=== PATIENT | female | born 1990 | race Hispanic/Latino ===

== ENCOUNTER → 2022-11-05 07:29 | Outpatient (CLI) | payer OTHER, SELFPAY ==
--- NOTE | ~2022-11-05 | US_ITS ---
Limited Abdominal Sonogram: Real-time sonographic imaging of the right upper quadrant was performed. Clinical History: Abnormal serum enzyme levels Findings: The liver appears echogenic, with no evidence of mass lesion or bile duct dilatation. Main portal vein demonstrates normal direction of flow. The gallbladder is well distended, and appears no rmal with no evidence of gallstone or wall thickening. The common bile duct measures 5 mm. The visua lized pancreas, aorta, and IVC are unremarkable. Impression: . Diffuse fatty infiltration of the liver. Reviewed, dictated and finalized at location M. Impression: . Diffuse fatty infiltration of the liver.
== END ==
PROVIDERS: PCP Family Medicine; Visit Provider Family Medicine
DX: R74.8 Abnormal levels of other serum enzymes (principal); K76.0 Fatty (change of) liver, not elsewhere classified
CPT/HCPCS: 76705

== ENCOUNTER 2023-05-07 10:41 | Outpatient (CLI) | payer OTHER, SELFPAY ==
--- NOTE | ~2023-05-07 | XR_ITS ---
EXAMINATION: XR hysterosalpingogram DATE: 05/08/2023 06:28 CDT INDICATION: Infertility TECHNIQUE: Fluoroscopy was provided for a hysterosalpingogram performed by Dr. Charles Gómez. FINDINGS: There is normal intraluminal morphology of the uterus. The fallopian tubes are normal in a ppearance and are widely patent, with free spill into the peritoneal cavity from both sides. IMPRESSION: 1. Normal hysterosalpingogram. The uterus demonstrates normal intraluminal morphology and both fall opian tubes are patent. Reviewed, dictated and finalized at location A. IMPRESSION: 1. Normal hysterosalpingogram. The uterus demonstrates normal intraluminal mo rphology and both fallopian tubes are patent.
== END 2023-05-07 10:42 | disposition home or self-care (01) ==
LOC: ANHIMG 10:42
PROVIDERS: PCP Family Medicine; Visit Provider Obstetrics & Gynecology
DX: N97.8 Female infertility of other origin (principal)
CPT/HCPCS: 58340; 74740; Q9966

== ENCOUNTER 2023-05-31 12:59 | Outpatient (CLI) | payer OTHER, SELFPAY ==
[2023-05-31 13:44] LABS: Beta HCG Quantitative 167.13 mIU/ML
== END 2023-05-31 13:00 | disposition home or self-care (01) ==
LOC: ANHLAB 13:01
PROVIDERS: PCP Family Medicine; Visit Provider Family Medicine
DX: Z32.01 Encounter for pregnancy test, result positive (principal)
CPT/HCPCS: 36415; 84702

== ENCOUNTER 2023-06-02 12:09 | Outpatient (CLI) | payer OTHER, SELFPAY ==
[2023-06-02 13:01] LABS: Beta HCG Quantitative 387.72 mIU/ML
== END 2023-06-02 12:10 | disposition home or self-care (01) ==
PROVIDERS: PCP Family Medicine; Visit Provider Family Medicine
DX: Z32.01 Encounter for pregnancy test, result positive (principal)
CPT/HCPCS: 36415; 84702

== ENCOUNTER 2023-06-04 12:55 | Outpatient (CLI) | payer OTHER, SELFPAY | END 2023-06-04 12:56 | disposition home or self-care (01) | LOC: ANHLAB 12:56 | PROVIDERS: PCP Family Medicine; Visit Provider Family Medicine | DX: Z32.01 Encounter for pregnancy test, result positive (principal) | CPT/HCPCS: 36415; 84702 ==

== ENCOUNTER 2023-07-16 01:23 | Day surgery (SDC) | payer OTHER, SELFPAY ==
[2023-07-14 10:39] VITALS: BMI 40.8
--- NOTE | 2023-07-14 10:40 | PC.NURSE ---
Report to the Outpatient Waiting Room, entrance under the green pavilion located off [facility], at time _0915_ on date _[id number]_. Planned Procedure Time: _1115_. Time changes happen often and if your time is changed the preop area will call you the afternoon before. - You and your visitor will be asked to self-screen and do not enter if you have any COVID symptoms. - A mask is optional within the hospital at this time. Patients may have clear liquids (water, carbonated beverages, clear teas, apple juice) until 3 hours prior to surgery with a maximum of 20 ounces. - No food from midnight until time of surgery Take the following medications with a SIP of water the morning of surgery: ___Labetolol DO NOT STOP ANY OF YOUR OTHER PRESCRIPTION MEDICATIONS PRIOR TO SURGERY ?EXCEPT THE FOLLOWING Medications to discontinue per physician None Date to take last dose Please no make-up, nail mohawk, hairspray, perfume, deodorant, or body powder the day of surgery. No jewelry (including any body piercings) or valuables the day of surgery, leave them at home. Please take a shower or bath the night before, or the morning of, surgery with an antibacterial soap. Wear comfortable, loose fitting clothing. - Jewelry must be removed prior to entering the operating room. Rings and piercings that are not removed may be cut off. - The hospital will not accept responsibility for valuables. - Please leave all valuables, including medications, at home the day of surgery. If you are going home after surgery, a licensed truss driver helper must drive you home. - NO public transportation without another adult if you receive anesthesia. - We recommend that an adult stay with you for 24 hours following discharge. - We also recommend that you do not drive, make important decision, drink alcoholic beverages, or take any drugs that were not prescribed by your health care provider for at least 24 hours after your discharge time. Follow any additional instructions given to you from your surgeon. If you or anyone in your household have experienced Covid symptoms in the past week, please notify your surgeon or the nurse liaison at the phone number below for possible testing. Telephone instructions given to _Nani__and asked if any additional questions and then verbalized understanding. Patient advised to call surgeon office or pre surgery nurse liaison [phone] if any additional questions.
--- NOTE | 2023-07-14 12:12 | PM.IMHP ---
H&P: HPI History of Present Illness Date/Time: 07/14/23 12:12 Chief Complaint: 33-year-old 3 para 1 with 1st trimester missed A/B Narrative: 33-year-old female in her 1st trimester with an ultrasound that showed no growth at about 7 weeks gestation with no heart tones. She will undergo suction dilatation curettage. Risks and benefits reviewed in full [facility] Social History Social History Smoking status: Never smoker Lack of Transportation: No Lack of Food: Never True Current Housing: I Have Housing Concerned About Future Housing: No Difficulty Paying Gas/Electric Bills: No Difficulty Paying for Meds: No Currently Unemployed: No Education: Trade/Vocational Certificate Difficulty w/ Childcare or Family Care: No Living arrangements: with family Spiritual care concerns: No Meds Home Medications and Allergies Home Medications Medication Instructions Recorded Confirmed Type labetalol 100 mg tablet See Rx Instructions .Route 05/26/23 07/14/23 Rx .COMPLEX #180 tabs Allergies Allergy/AdvReac Type Severity Reaction Status Date / Time No Known Allergies Allergy Unverified 07/14/23 10:33 Exam Const: General: cooperative, healthy appearing and comfortable Nutritional Appearance: average body habitus Orientation/consciousness: oriented to person, oriented to place and oriented to time Resp: Effort & Inspection: normal respiratory effort Cardio: Rate: regular rate Rhythm: regular rhythm Heart sounds: S1 normal heart sound present and S2 normal heart sound present GI: Inspection: normal to inspection : External Female Exam: normal external appearance Speculum Exam - Vagina: normal appearance of the vagina Speculum Exam - Cervix: normal appearance of the cervix Bimanual exam- vagina & uterus: enlarged Bimanual Exam- Adnexa, other: normal adnexae Assessment and Plan Assessment and plan (1) Missed : Code(s): O02.1 - Missed Status: Acute Plan suction dilatation and curettage
--- NOTE | 2023-07-16 05:40 | WPDHPUPDATE1 ---
History and Physical Update Update Date/Time: 07/16/23 05:40 History and Physical has been reviewed, including an updated exam of the patient. There are NO changes in the patient's condition. Risks, benefits, and alternatives have been discussed and questions answered. Patient agrees to proceed with procedure.
[2023-07-16 10:03] LABS: Hematocrit 40.8 % (37.0-47.0); Hemoglobin 13.5 g/dL (12.0-15.0)
--- NOTE | 2023-07-16 10:05 | WPDANESEPPF ---
Anes - Initial Pre Proc Eval Procedure: Operation Date: 07/16/23 11:15 Proposed Procedures p Suction Dilatation and Curettage - Adarsh Gómez MD Date/Time: 07/16/23 10:05 Surgeon: Adarsh Gómez MD Pre Op Diagnosis: missed AB Patient Data Age: 33 Gender: F Height: 1.6 m Weight: 104.5 kg Allergies Allergy/AdvReac Type Severity Reaction Status Date / Time No Known Allergies Allergy Unverified 07/16/23 10:06 Home Medications Medication Instructions Recorded Confirmed Type labetalol 100 mg tablet See Rx Instructions .Route 05/26/23 07/14/23 Rx .COMPLEX #180 tabs hydrocodone 5 mg-acetaminophen 325 1 tablet PO Q4H PRN pain #20 tabs 07/16/23 Rx mg tablet Laboratory Tests 07/16/23 09:53 Hgb Pending Hct Pending Patient hx anesthesia problems: none Family hx anesthesia problems: none Results Review: All pre-operative results and documents have been reviewed as part of the pre-operative evaluation. [facility] Past Medical History Medical History (Updated 07/16/23 @ 10:06 by Adarsh Parish MD) Obesity Social History Social History Smoking status: Never smoker Lack of Transportation: No Lack of Food: Never True Current Housing: I Have Housing Concerned About Future Housing: No Difficulty Paying Gas/Electric Bills: No Difficulty Paying for Meds: No Currently Unemployed: No Education: Trade/Vocational Certificate Difficulty w/ Childcare or Family Care: No Living arrangements: with family Spiritual care concerns: No Anes - Eval Final PreProcedure Day of Procedure 07/16/23 10:05 Patient weight: obese Heart: regular rate and rhythm Lungs: clear to auscultation Airway: Mallampati scale class II Neurological: alert and oriented Last oral intake: >/= 8 hours ASA classification: II Emergent: no Anesthetic plan: proceed Anesthesia type and monitoring: general GIVS and standard monitoring Results Review: All pre-operative results and documents have been reviewed as part of the pre-operative evaluation. Informed Consent: The patient's anesthetic plan and its attendant risks and benefits were discussed with the patient/family/POA. Questions were solicited and answers provided to the satisfaction of the patient/family/POA.
[2023-07-16] MEDS: ACETAMINOPHEN 500 MG TABLET 1000 MG PO (10:08)
[2023-07-16] MEDS: LACTATED RINGERS 1,000 ML 30 ML IV CONT (10:08)
[2023-07-16 10:09] VITALS: BP 117/79; PULSE 114; RESP 16; TEMP 36.2; O2SAT 98
[2023-07-16] MEDS: LIDOCAINE HCL 1% LOCAL INJ 10 ML VIAL INFILTRATE (11:27)
[2023-07-16 11:45] VITALS: BP 96/47; PULSE 102; RESP 16; O2SAT 96
--- NOTE | 2023-07-16 11:45 | P.OP_ITS ---
Procedure Note - Detailed Date of Procedure 07/16/23 Pre-op Diagnosis missed AB Post-op Diagnosis Same Procedure Performed suction Dilatation curettage Surgeon Adarsh Gómez MD Anesthesia MAC and Local Indications 33 year multiparous female with a 1st trimester missed A/B Findings uterus sounded 10cm. Tissue consistent products of conception Description of Procedure patient was prepped draped sterile placed dorsal lithotomy position. Under excellent sedation weighted speculum placed in posterior fornix. Anterior lip of the cervix grasped with single-tooth. 2.5cc 1% xylocaine anesthesia placed a t 2, 4, 8, 10:00 a.m. of the cervix. Uterus sounded 10cm. Serial dilatation with fragmented dilators performed followed by passage of 10. Suction curette. Several passes were made a good grating sound was heard the instruments withdrawn. The patient was recovered in satisfactory condition. All sponge, needle, instrument counts were correct. There were no immediate complications. Blood loss was estimated 5cc Estimated Blood Loss 25 Drains No Packing No Pathology Yes Complications No immediate complications Condition Stable Disposition PACU
[2023-07-16] MEDS: fentaNYL CITRATE INJ (*CRX) 100 MCG/2 ML VIAL 25 MCG IV PUSH ×5 (11:50→12:00)
[2023-07-16 12:15] VITALS: BP 116/64; PULSE 88
[2023-07-16 12:45] VITALS: BP 116/67; PULSE 93
== END 2023-07-16 12:58 | disposition home or self-care (01) ==
PROVIDERS: PCP Family Medicine; Visit Provider Obstetrics & Gynecology
PROC: (CPT 59820; principal; 2023-07-16 11:15)
DX: O02.1 Missed abortion (principal)
CPT/HCPCS: 59820; 36415; 85014; 85018; 85461; 86850; 86900; 86901; 88305; A9270; J1100; J2250; J2405; J2704; J3010; J7120

== ENCOUNTER 2024-01-10 12:35 | Outpatient (CLI) | payer OTHER, SELFPAY ==
[2024-01-10 14:07] LABS: Beta HCG Quantitative 235.82 mIU/ML
== END 2024-01-10 12:36 | disposition home or self-care (01) ==
LOC: ANHLAB 12:36
PROVIDERS: PCP Family Medicine; Visit Provider Family Medicine
DX: Z32.01 Encounter for pregnancy test, result positive (principal)
CPT/HCPCS: 36415; 84702

== ENCOUNTER 2024-01-12 12:14 | Outpatient (CLI) | payer OTHER, SELFPAY | END 2024-01-12 12:15 | disposition home or self-care (01) | LOC: ANHLAB 12:15 | PROVIDERS: PCP Family Medicine; Visit Provider Family Medicine | DX: Z32.01 Encounter for pregnancy test, result positive (principal) | CPT/HCPCS: 36415; 84702 ==

== ENCOUNTER 2024-01-17 14:43 | Outpatient (CLI) | payer OTHER, SELFPAY | END 2024-01-17 14:44 | disposition home or self-care (01) | PROVIDERS: PCP Family Medicine; Visit Provider Obstetrics & Gynecology | DX: Z32.00 Encounter for pregnancy test, result unknown (principal) | CPT/HCPCS: 36415; 84144; 84702 ==

== ENCOUNTER 2024-01-21 14:17 | Outpatient (CLI) | payer OTHER, SELFPAY | END 2024-01-21 14:18 | disposition home or self-care (01) | LOC: ANHLAB 14:19 | PROVIDERS: PCP Family Medicine; Visit Provider Obstetrics & Gynecology | DX: Z34.80 Encounter for supervision of other normal pregnancy, unspecified trimester (principal) | CPT/HCPCS: 36415; 84702 ==

== ENCOUNTER 2024-07-19 11:47 | Outpatient (CLI) | payer OTHER, SELFPAY ==
[2024-07-19 13:42] LABS: Free T4 Free Thyroxine 0.59 ng/dL (0.78-2.19)
== END 2024-07-19 11:48 | disposition home or self-care (01) ==
LOC: ANHLAB 11:50
PROVIDERS: PCP Family Medicine; Visit Provider Obstetrics & Gynecology
DX: Z79.899 Other long term (current) drug therapy (principal)
CPT/HCPCS: 36415; 84439; 84443

== ENCOUNTER 2024-08-31 12:19 | Outpatient (RCR) | payer OTHER, SELFPAY ==
[2024-07-06 10:21] VITALS: BP 125/63; PULSE 85
[2024-08-31 13:03] VITALS: BP 130/80; PULSE 90
== END 2024-09-14 09:50 | disposition other institution (70) ==
LOC: ANHOBOP 12:19
PROVIDERS: PCP Family Medicine; Visit Provider Obstetrics & Gynecology
DX: O36.8130 Decreased fetal movements, third trimester, not applicable or unspecified (principal); Z3A.29 29 weeks gestation of pregnancy
CPT/HCPCS: 59025

== ENCOUNTER 2024-09-02 14:35 | Outpatient (CLI) | payer OTHER, SELFPAY ==
[2024-09-02 15:01] VITALS: BP 145/84; PULSE 93
[2024-09-02 15:08] LABS: Hematocrit 35.5 % (37.0-47.0); Hemoglobin 11.5 g/dL (12.0-15.0); Immature Granulocyte Percent A 0.7 % (0-0.5); Lymphocytes Absolute Auto 1.91 K/mm3 (0.9-3.2); Mean Corpuscular HGB Conc 32.4 g/dl (32-36); Mean Corpuscular Hemoglobin 28.1 pg (26-34); Mean Corpuscular Volume 86.8 fl (80-100); Nucleated Red Blood Cells Absolute Auto 0.000 K/mm3 (0.0-0.012); Nucleated Red Blood Cells Perc 0.0 % (0.0-0.2); Platelet Count Result 275 k/mm3 (150-375); Red Blood Count 4.09 M/mm3 (4.2-5.4); White Blood Count 13.0 K/mm3 (4.5-10.0)
[2024-09-02 15:16] VITALS: BP 151/78; PULSE 87
[2024-09-02 15:17] LABS: Add Urine Microscopic? YES; Appearance Urine Clear (Clear); Glucose Urine UA Negative (Negative); Leukocyte Esterase Ur Trace LEU/UL (Negative); Nitrate Urine Negative (Negative); Non Pathogenic Casts 0-2; Specific Grav Ur 1.004 (1.001-1.035)
[2024-09-02 15:19] LABS: Alanine Aminotransferase 13 U/L (6-35); Albumin Level 3.6 g/dL (3.5-5.1); Alkaline Phosphatase 101 U/L (38-126); Anion Gap 9 mmol/L (4-12); Aspartate Amino Transferase 21 U/L (14-36); Bilirubin,Total 0.2 mg/dL (0.2-1.3); Blood Urea Nitrogen 5 mg/dL (7-17); Calcium 9.6 mg/dL (8.4-10.2); Carbon Dioxide 18 mmol/L (22-30); Chloride 109 mmol/L (98-107); Estimated Glomerular Filt Rate > 60; Glucose 76 mg/dL (65-110); Potassium 4.2 mmol/L (3.4-5.0); Sodium 136 mmol/L (137-145); Total Protein 6.9 g/dL (6.3-8.2); Uric Acid 4.7 mg/dL (2.5-7.5)
[2024-09-02 15:31] VITALS: BP 129/75; PULSE 89
[2024-09-02 15:46] VITALS: BP 126/76; PULSE 88
[2024-09-02 16:01] VITALS: BP 134/72; PULSE 91
[2024-09-02 16:02] LABS: Total Protein Urine Random 14 mg/dL; Ur Ttl Prot Creatinine Ratio 0.53 mg/mg (0-0.20)
[2024-09-02 16:13] VITALS: BP 145/84; PULSE 86; BMI 44.2
== END 2024-09-02 16:13 | disposition home or self-care (01) ==
LOC: ANHOBOP 14:39 → ANHOBPP 14:44
PROVIDERS: PCP Family Medicine; Visit Provider Obstetrics & Gynecology Gynecology
DX: R03.0 Elevated blood-pressure reading, without diagnosis of hypertension (principal)
CPT/HCPCS: 36415; 59025; 80053; 81001; 82570; 84156; 84550; 85025; 99199

== ENCOUNTER 2024-09-03 15:03 | Outpatient (NON) | payer OTHER, SELFPAY ==
[2024-09-03 15:07] VITALS: BMI 44.5
[2024-09-03 15:26] LABS: Total Volume 24 Hour Urine 3000 ml
[2024-09-03 15:38] LABS: Total Protein Urine 24 Hr 420 mg/24hr (28-141); Total Protein Urine Random 14 mg/dL
[2024-09-03 15:39] LABS: Creatinine 24 Hour Urine 1.3 gm/24 (0.8-1.8)
[2024-09-03 15:50] LABS: Specific Gravity Ur 1.015
--- NOTE | 2024-09-11 12:39 | PM.IMHP ---
H&P: HPI History of Present Illness Date/Time: 09/11/24 12:39 Chief Complaint: Term with gestational hypertension and previous section Narrative: [age]arous patient admitted for repeat section 30 weeks gestation she had mildly elevated blood pressures with negative PIH labs. She declined attempted vaginal after Review of Systems Review of Systems: All systems reviewed & are unremarkable except as noted in HPI and below PMFSH Past Medical History Medical History Obesity Social History Social History Smoking status: Never smoker Do You Feel Safe in your Home?: Yes Lack of Transportation: No Lack of Food: Never True Current Housing: I Have Housing Concerned About Future Housing: No Difficulty Paying Gas/Electric Bills: No Difficulty Paying for Meds: No Currently Unemployed: No Education: Decline to Answer Difficulty w/ Childcare or Family Care: No Living arrangements: with family Spiritual care concerns: No Meds Home Medications and Allergies Home Medications ?Medication ?Instructions ?Recorded ?Confirmed ?Type labetalol 100 mg tablet See Rx Instructions .Route 03/10/24 Rx .COMPLEX #180 tabs famotidine 20 mg tablet 20 mg PO DAILY #90 tabs 09/07/24 Rx Allergies Allergy/AdvReac Type Severity Reaction Status Date / Time No Known Allergies Allergy Unverified 05/19/24 14:35 Exam Const: General: cooperative, healthy appearing and comfortable Nutritional Appearance: overweight Orientation/consciousness: oriented to person, oriented to place and oriented to time HENMT: Head: normal to inspection Resp: Effort & Inspection: normal respiratory effort Cardio: Rate: regular rate Rhythm: regular rhythm Heart sounds: S1 normal heart sound present and S2 normal heart sound present GI: Inspection: normal to inspection (Gravid soft uterus) : External Female Exam: normal external appearance Speculum Exam - Vagina: normal appearance of the vagina Speculum Exam - Cervix: normal appearance of the cervix Assessment and Plan Assessment and plan (1) Term : Code(s): Z34.90 - Encounter for supervision of normal , unspecified, unspecified trimester Status: Acute (2) Gestational hypertension: Code(s): O13.9 - Gestational [-induced] hypertension without significant proteinuria, unspecified trimester Status: Acute (3) Previous section: Code(s): Z98.891 - History of uterine scar from previous surgery Status: Acute Plan Proceed with repeat low-transverse section
== END 2024-09-03 15:04 | disposition home or self-care (01) ==
LOC: ANHOBOP 15:04
PROVIDERS: PCP Family Medicine; Visit Provider Obstetrics & Gynecology Gynecology
DX: Z34.90 Encounter for supervision of normal pregnancy, unspecified, unspecified trimester (principal); Z3A.00 Weeks of gestation of pregnancy not specified
CPT/HCPCS: 81050; 82570; 84156

== ENCOUNTER 2024-09-11 14:01 | Outpatient (CLI) | payer OTHER, SELFPAY ==
[2024-09-11 14:18] LABS: Hematocrit 33.6 % (37.0-47.0); Hemoglobin 10.8 g/dL (12.0-15.0); Mean Corpuscular HGB Conc 32.1 g/dl (32-36); Mean Corpuscular Hemoglobin 27.6 pg (26-34); Mean Corpuscular Volume 85.9 fl (80-100); Platelet Count Result 250 k/mm3 (150-375); Red Blood Count 3.91 M/mm3 (4.2-5.4); White Blood Count 12.4 K/mm3 (4.5-10.0)
[2024-09-11 15:15] LABS: Syphilis IgG/IgM Antibody Non-Reactive (Nonreactive)
== END 2024-09-11 14:02 | disposition home or self-care (01) ==
LOC: ANHLAB 14:03
PROVIDERS: PCP Family Medicine; Visit Provider Obstetrics & Gynecology
DX: Z01.812 Encounter for preprocedural laboratory examination (principal)
CPT/HCPCS: 36415; 85027; 86593; 86850; 86900; 86901

== ENCOUNTER 2024-09-12 05:22 | Inpatient (IN) | payer OTHER, SELFPAY ==
--- NOTE | 2024-09-11 12:41 | HP_ITS ---
This report was moved to the correct visit on 09/15/2024. The original report was signed by Adarsh Freeman J. MD on 09/11/24 1241. H&P: HPI History of Present Illness Date/Time: 09/11/24 12:39 Chief Complaint: Term with gestational hypertension and previous section Narrative: [age]arous patient admitted for repeat section 30 weeks gestation she had mildly elevated blood pressures with negative PIH labs. She declined attempted vaginal after Review of Systems Review of Systems: All systems reviewed & are unremarkable except as noted in HPI and below PMFSH Past Medical History Medical History Obesity Social History Social History Smoking status: Never smoker Do You Feel Safe in your Home?: Yes Lack of Transportation: No Lack of Food: Never True Current Housing: I Have Housing Concerned About Future Housing: No Difficulty Paying Gas/Electric Bills: No Difficulty Paying for Meds: No Currently Unemployed: No Education: Decline to Answer Difficulty w/ Childcare or Family Care: No Living arrangements: with family Spiritual care concerns: No Meds Home Medications and Allergies Home Medications ?Medication ?Instructions ?Recorded ?Confirmed ?Type labetalol 100 mg tablet See Rx Instructions .Route 03/10/24 Rx .COMPLEX #180 tabs famotidine 20 mg tablet 20 mg PO DAILY #90 tabs 09/07/24 Rx Allergies Allergy/AdvReac Type Severity Reaction Status Date / Time No Known Allergies Allergy Unverified 05/19/24 14:35 Exam Const: General: cooperative, healthy appearing and comfortable Nutritional Appearance: overweight Orientation/consciousness: oriented to person, oriented to place and oriented to time HENMT: Head: normal to inspection Resp: Effort & Inspection: normal respiratory effort Cardio: Rate: regular rate Rhythm: regular rhythm Heart sounds: S1 normal heart sound present and S2 normal heart sound present GI: Inspection: normal to inspection (Gravid soft uterus) : External Female Exam: normal external appearance Speculum Exam - Vagina: normal appearance of the vagina Speculum Exam - Cervix: normal appearance of the cervix Assessment and Plan Assessment and plan (1) Term : Code(s): Z34.90 - Encounter for supervision of normal , unspecified, unspecified trimester Status: Acute (2) Gestational hypertension: Code(s): O13.9 - Gestational [-induced] hypertension without significant proteinuria, unspecified trimester Status: Acute (3) Previous section: Code(s): Z98.891 - History of uterine scar from previous surgery Status: Acute Plan Proceed with repeat low-transverse section Please be advised this is a medical document. It is intended for [id number] communication. It is written in medical language and may contain unfamiliar abbreviations or verbiage. Medical documents are intended to carry relevant information, facts as evident, and the clinical opinion of the practitioner at the time of the encounter. This report may have been done utilizing a voice recognition system. Attempts have been made to correct errors. However, there may be uncorrected grammatical, spelling, and recognition errors present. The file time of this note does not necessarily represent the time the patient was seen. Report Initialized date/time: Adarsh Freeman MD 09/11/24 / 1241 Electronically signed by: Adarsh Freeman MD 09/11/24 1241
[2024-09-12] VITALS (44 sets, daily range): BP systolic 116–162; BP diastolic 59–85; PULSE 54–91; RESP 14–19; TEMP 36.3–37.1; O2SAT 98–100; BMI 44.9
--- NOTE | 2024-09-12 06:29 | LDADM ---
This patient, Nani Wallace, was admitted to Labor/Delivery/Recovery 120 on 09/12/24 at 05:22. Plans for section, pain management and were discussed with patient. Patient/family oriented to hospital policies and general routines including ID bracelet, bed and alarms, visiting hours, pain management, procedures, bathroom and other care routines, personal items, smoking policy, room service/diet and guest tray routines, security routines, and visiting hours. Patient/Family are encouraged to report perceived risks to care and to ask questions if they do not understand what they are told or what they should do. See OBIX for further documentation.
--- NOTE | 2024-09-12 06:34 | WPDHPUPDATE1 ---
History and Physical Update Update Date/Time: 09/12/24 06:34 History and Physical has been reviewed, including an updated exam of the patient. There are NO changes in the patient's condition. Risks, benefits, and alternatives have been discussed and questions answered. Patient agrees to proceed with procedure.
[2024-09-12] MEDS: ceFAZolin 2 GM in SODIUM CHLORIDE 0.9% IV 50 ML 100 ML IVPB (06:51)
[2024-09-12] MEDS: ACETAMINOPHEN 500 MG TABLET 1000 MG PO ×4 (06:52→23:57)
[2024-09-12] MEDS: FAMOTIDINE 20 MG/2 ML VIAL IV PUSH (06:53)
[2024-09-12] MEDS: LACTATED RINGERS 1,000 ML 125 ML IV CONT (06:53)
[2024-09-12] MEDS: ONDANSETRON INJ 4 MG/2 ML VIAL IV PUSH (06:53)
--- NOTE | 2024-09-12 07:06 | WPDANESEPPF ---
Anes - Initial Pre Proc Eval Procedure: Operation Date: 09/12/24 07:30 Proposed Procedures p Repeat Section - Adarsh Gómez MD Date/Time: 09/12/24 07:06 Surgeon: Adarsh Gómez MD Pre Op Diagnosis: C/S Patient Data Age: 34 Gender: F Height: 1.6 m Weight: 115 kg Last Vital Signs Pulse 74 09/12/24 07:01 BP 139/82 09/12/24 07:01 O2 Del Method Room Air 09/12/24 06:28 Allergies Allergy/AdvReac Type Severity Reaction Status Date / Time No Known Allergies Allergy Verified 09/12/24 06:36 Home Medications ?Medication ?Instructions ?Recorded ?Confirmed ?Type labetalol 100 mg tablet See Rx Instructions .Route 03/10/24 09/11/24 Rx .COMPLEX #180 tabs famotidine 20 mg tablet 20 mg PO DAILY #90 tabs 09/07/24 09/11/24 Rx hydrocodone 5 mg-acetaminophen 325 1 tablet PO Q4H PRN pain #20 tabs 09/12/24 Rx mg tablet Patient hx anesthesia problems: none Family hx anesthesia problems: none Results Review: All pre-operative results and documents have been reviewed as part of the pre-operative evaluation. [facility] Past Medical History Medical History Obesity Family History Family History Other Diabetes mellitus Hypertension Social History Social History Smoking status: Never smoker Substance use: never Do You Feel Safe in your Home?: Yes Lack of Transportation: No Lack of Food: Never True Current Housing: I Have Housing Concerned About Future Housing: No Difficulty Paying Gas/Electric Bills: No Difficulty Paying for Meds: No Currently Unemployed: No Education: Associate Degree Difficulty w/ Childcare or Family Care: No Living arrangements: with family Spiritual care concerns: No Anes - Eval Final PreProcedure Day of Procedure 09/12/24 07:06 Patient weight: morbidly obese Heart: regular rate and rhythm Lungs: clear to auscultation Airway: Mallampati scale class II Neurological: alert and oriented Last oral intake: >/= 8 hours ASA classification: III Emergent: no Anesthetic plan: proceed Anesthesia type and monitoring: regional spinal and standard monitoring Results Review: All pre-operative results and documents have been reviewed as part of the pre-operative evaluation. Informed Consent: The patient's anesthetic plan and its attendant risks and benefits were discussed with the patient/family/POA. Questions were solicited and answers provided to the satisfaction of the patient/family/POA.
--- NOTE | 2024-09-12 08:17 | W.PM.OBCSD ---
OB - Delivery Note Procedure Delivery date: 09/12/24 Pre-op diagnosis: Breech Presentation and Previous Delivery Post-op Diagnosis: Same Induction method: None Delivery monitor: External FHT Prior to decision for section, ACOG/SMFM labor guidelines were considered and discussed with the patient and staff. Decision made to proceed with the section.: Yes Procedure Performed: Repeat Surgeon: Adarsh Gómez MD Anesthesia type: Spinal Description of Procedure/Findings: The patient was prepped draped sterile fashion placed in the supine position under excellent spinal anesthetic the abdomen was entered through the previous Pfannenstiel incision progressive to fascia was incised in midline carried underlying muscles were sharply dissected parietal peritoneum by Debbie clamps and by sharp dissection carried superiorly and inferiorly bladder there was a huge amount scar tissue at the superior portion of the uterus and this was loosened up to an adequate amount that was safe. Bladder flap was formed and a bladder blade returned a low-transverse incision made the breech delivered to the maternal right. Anterior the shoulders were with the arm swept medially and the head delivered in a flexed position cord clamped x2 and cut infant passed off the table. Placenta delivered intact manually. Uterus was then checked for any debris and was unable to be delivered from the abdomen the scar tissue. Uterus was closed continuous running locking 0 Vicryl from lateral edge to lateral edge. This followed by 2nd imbricating running locking 0 Vicryl from lateral edge to lateral edge. Hemostasis was assured. The fascia then closed with a continuous running ovum Vicryl from lateral edge to lateral edge irrigation subcutaneous layer and the skin closed with 4 Monocryl glue. QBL was 120cc. All sponge, needle, instrument counts were correct. There were no immediate complications Estimated Blood Loss: 120 Drains: No Packing: No Pathology: None sent Complications: No immediate complications Condition: Stable Disposition: Floor Baby Date of : 09/12/24 Time of : 08:00 Gestational Age by Date: 38 gender: Male Weight (pounds): 6 Weight (ounces): 10 presentation: breech position: Right Sacrum Anterior Placenta delivery description: Spontaneous Cord Vessel Description: 3 Vessels
--- NOTE | 2024-09-12 08:20 | PM.DS ---
DS: Admitting Diagnosis Discharge Date 09/14/2024 Admitting Diagnosis Term /previous section/breech DS: Discharge Diagnosis Discharge Diagnosis (1) Term : Code(s): Z34.90 - Encounter for supervision of normal , unspecified, unspecified trimester Status: Acute (2) Previous section: Code(s): Z98.891 - History of uterine scar from previous surgery Status: Acute (3) Breech presentation: Code(s): O32.1XX0 - Maternal care for breech presentation, not applicable or unspecified Status: Acute DS: Summary Hospital Course Reason for hospitalization: Patient was admitted for repeat section on 09/04/2019 Hospital Course: Patient's hospital course unremarkable. She remained afebrile. She was up, voiding without difficulty, eating regular diet, ambulating, and generally without complaints. Time Spent with Patient Time attestation: Total time spent providing and/or coordinating discharge services: Exam Const: General: cooperative, healthy appearing, comfortable and obese Orientation/consciousness: oriented to person, oriented to place and oriented to time Resp: Effort & Inspection: normal respiratory effort Cardio: Rate: regular rate Rhythm: regular rhythm Heart sounds: S1 normal heart sound present and S2 normal heart sound present GI: Inspection: normal to inspection (Fundus firm below umbilicus) and incision (Wound is clean dry and intact) Discharge Plan Discharge Attending physician on discharge: Adarsh Freeman Discharging Clinician: Adarsh Freeman Patient Disposition: Home Activity: may shower, no straining and pelvic rest Diet: heart healthy Wound Care Instructions: follow printed instructions Patient Instructions: Antibiotic Form Patient Language: Burkinan Stand Alone Forms: General Discharge Information Follow-up/Referrals: Adarsh Freeman MD [Physician] - Discharge Medications: New hydrocodone-acetaminophen 5-325 mg tablet 1 tablet PO Q4H PRN (Reason: pain) Qty: 20 0RF Continued labetalol 100 mg tablet See Rx Instructions .ROUTE .COMPLEX Qty: 180 3RF Dose Instruction: TAKE 1 TABLET EVERY 12 HOURS Rx Instructions: TAKE 1 TABLET EVERY 12 HOURS famotidine 20 mg tablet 20 mg PO DAILY Qty: 90 3RF Date of admission: 09/12/24 05:22 Primary Care Provider: Nancy Camargo Admitting Provider: Adarsh Freeman Attending physician on admission: Adarsh Freeman Condition: Stable
[2024-09-12] MEDS: OXYTOCIN 30 UNITS/NS 500 ML 30 UNITS/500 ML BAG 125 UNITS IV CONT (08:38)
[2024-09-12] MEDS: MORPHINE SULFATE INJ (*CRX) 10 MG/ML AMP 3 MG IV PUSH (10:23)
--- NOTE | 2024-09-12 11:30 | OBPPTRN ---
Patient transferred to post room # 284 via stretcher.. Support person present. Oriented to unit, room, information board, rooming in, admission packet and security measures. Patient verbalizes understanding.
[2024-09-12] MEDS: KETOROLAC 15 MG/ML VIAL (*BKC) IV PUSH ×3 (11:51→23:57)
[2024-09-12] MEDS: LIDOCAINE 5% PATCH 1 PATCH TRANSDERM (12:00)
[2024-09-12] MEDS: DEXTROSE 5%/0.45% SOD CHL 1,000 ML 125 ML IV CONT (13:44)
[2024-09-12] MEDS: oxyCODONE HCL (*CRX) 5 MG TAB IR PO (15:36)
[2024-09-12] MEDS: DOCUSATE SODIUM 100 MG CAPSULE PO (17:58)
[2024-09-12] MEDS: SIMETHICONE 80 MG TAB.CHEW PO (17:58)
[2024-09-12] MEDS: LABETALOL HCL 100 MG TABLET BY MOUTH (21:55)
[2024-09-13 00:20] VITALS: BP 128/73; PULSE 98; RESP 18; TEMP 36.9; O2SAT 100
[2024-09-13 04:30] VITALS: BP 121/73; PULSE 83; RESP 18; TEMP 36.7; O2SAT 99
[2024-09-13 05:17] LABS: Hematocrit 31.0 % (37.0-47.0); Hemoglobin 9.9 g/dL (12.0-15.0); Immature Granulocyte Percent A 0.5 % (0-0.5); Lymphocytes Absolute Auto 1.44 K/mm3 (0.9-3.2); Mean Corpuscular HGB Conc 31.9 g/dl (32-36); Mean Corpuscular Hemoglobin 28.2 pg (26-34); Mean Corpuscular Volume 88.3 fl (80-100); Nucleated Red Blood Cells Absolute Auto 0.000 K/mm3 (0.0-0.012); Nucleated Red Blood Cells Perc 0.0 % (0.0-0.2); Platelet Count Result 216 k/mm3 (150-375); Red Blood Count 3.51 M/mm3 (4.2-5.4); White Blood Count 12.5 K/mm3 (4.5-10.0)
[2024-09-13] MEDS: IBUPROFEN 600 MG TABLET PO ×4 (05:59→23:57)
[2024-09-13] MEDS: ACETAMINOPHEN 500 MG TABLET 1000 MG PO ×4 (05:59→23:58)
--- NOTE | 2024-09-13 07:36 | PM.OBPNVD ---
OB - PN: Subj Subjective Date/time seen: 09/13/24 07:36 Patient comments: no complaints, pain well controlled, incisional pain, tolerating diet and flatus present baby status: other (baby transferred) OB - PN: Obj Data Labs 09/13/24 04:41 Labs: Laboratory Results - last 24 hr 09/13/24 04:41 WBC 12.5 H RBC 3.51 L Hgb 9.9 L Hct 31.0 L MCV 88.3 MCH 28.2 MCHC 31.9 L RDW 13.3 Plt Count 216 MPV 10.7 H Immature Gran % (Auto) 0.5 Neut % (Auto) 83.0 H Lymph % (Auto) 11.5 L [place] % (Auto) 3.9 Eos % (Auto) 0.9 Baso % (Auto) 0.2 Lymph # (Auto) 1.44 [place] # (Auto) 0.5 Eos # (Auto) 0.1 Baso # (Auto) 0.0 Abs Immat Gran (auto) 0.06 H Absolute Neuts (auto) 10.4 H Absolute Nucleated RBC 0.000 Nucleated RBC % 0.0 OB - PN A/P Assessment and Plan (1) Previous section: Code(s): Z98.891 - History of uterine scar from previous surgery Status: Acute (2) Breech presentation: Code(s): O32.1XX0 - Maternal care for breech presentation, not applicable or unspecified Status: Acute (3) Term : Code(s): Z34.90 - Encounter for supervision of normal , unspecified, unspecified trimester Status: Acute Plan pass to [facility] Time Spent With Patient Time: Total time spent is greater than 50% in coordination of care (as documented) at patient's floor/unit and/or counseling patient: Review of Systems Review of Systems: All systems reviewed & are unremarkable except as noted in HPI and below Exam Const: General: cooperative, healthy appearing, comfortable and obese Orientation/consciousness: oriented to person, oriented to place and oriented to time Resp: Effort & Inspection: normal respiratory effort Cardio: Rate: regular rate Rhythm: regular rhythm Heart sounds: S1 normal heart sound present and S2 normal heart sound present GI: Inspection: normal to inspection (Fundus firm below umbilicus) and incision (Wound is clean dry and intact)
[2024-09-13 07:40] VITALS: BP 128/72; PULSE 77; RESP 16; TEMP 37.3; O2SAT 98
[2024-09-13 08:30] VITALS: PULSE 77
[2024-09-13] MEDS: DOCUSATE SODIUM 100 MG CAPSULE PO ×2 (08:30→18:32)
[2024-09-13] MEDS: SIMETHICONE 80 MG TAB.CHEW PO ×3 (08:30→18:32)
[2024-09-13] MEDS: LABETALOL HCL 100 MG TABLET BY MOUTH ×2 (08:30→21:38)
[2024-09-13] MEDS: FAMOTIDINE 20 MG TABLET PO (08:30)
--- NOTE | 2024-09-13 10:30 | WPDANLDPN2 ---
Anes-Prog Note L&D Date/Time: 09/13/24 10:30 Comfortable throughout: section Neuraxial method: spinal Epidural/Spinal procedure site: clean & non-tender Neuro status: Neuro function grossly intact. Cardiovascular status: normal Respiratory status: normal Airway patency: baseline Mental status: baseline Post-Op hydration status: normal Vital Signs: Last Vital Signs Temp 37.3 C 09/13/24 07:40 Pulse 77 09/13/24 08:30 Resp 16 09/13/24 07:40 BP 128/72 09/13/24 07:40 Pulse Ox 98 09/13/24 07:40 O2 Del Method Room Air 09/12/24 10:15 Pain score (VAS): 3 I/O: Intake & Output 09/12/24 09/13/24 09/13/24 23:59 07:59 15:59 Output Total 550 1350 Balance -550 -1350 Post-procedural complaints: none Patient feedback: Patient satisfied with anesthetic care.
--- NOTE | 2024-09-13 10:31 | WPDANLDNPN2 ---
Anes-Prog Note L&D-Neuraxial Date/Time: 09/13/24 10:31 Neuraxial medications: intrathecal PF morphine Opiod-related complaints: none Patient feedback: Patient satisfied with post-operative pain management.
[2024-09-13] MEDS: LIDOCAINE 5% PATCH 1 PATCH TRANSDERM (12:22)
--- NOTE | 2024-09-13 12:45 | PC.NURSE ---
Pt left floor at 1245 on 6 hour therapeutic pass to visit infant in NICU at [facility]
[2024-09-13 19:26] VITALS: BP 141/71; PULSE 90; RESP 16; TEMP 36.6; O2SAT 98
[2024-09-13 21:38] VITALS: PULSE 90
[2024-09-14 00:05] VITALS: BP 120/58; PULSE 84; RESP 14; TEMP 36.8; O2SAT 99
[2024-09-14] MEDS: IBUPROFEN 600 MG TABLET PO (05:45)
[2024-09-14] MEDS: ACETAMINOPHEN 500 MG TABLET 1000 MG PO (05:45)
[2024-09-14 05:46] VITALS: BP 122/60; PULSE 78; RESP 14; TEMP 36.8; O2SAT 99
--- NOTE | 2024-09-14 07:15 | P.PNOB_ITS ---
OB - PN: Subj Subjective Date/time seen: 09/14/24 07:15 Patient comments: no complaints, pain well controlled, tolerating diet and flatus present baby status: doing well OB - PN: Obj Data Labs 09/13/24 04:41 OB - PN A/P Assessment and Plan (1) Breech presentation: Code(s): O32.1XX0 - Maternal care for breech presentation, not applicable or unspecified Status: Acute (2) Previous section: Code(s): Z98.891 - History of uterine scar from previous surgery Status: Acute (3) Term : Code(s): Z34.90 - Encounter for supervision of normal , unspecified, unspecified trimester Status: Acute Plan Comments: home. fu in 4 weeks Time Spent With Patient Time: Total time spent is greater than 50% in coordination of care (as documented) at patient's floor/unit and/or counseling patient: Review of Systems 2 Review of Systems: All systems reviewed & are unremarkable except as noted in HPI and below Exam 2 Const: General: cooperative, healthy appearing and comfortable HENMT: Head: normal to inspection Resp: Effort & Inspection: normal respiratory effort GI: Inspection: normal to inspection and incision (cdi)
[2024-09-14 07:40] VITALS: BP 128/63; PULSE 75; RESP 16; TEMP 36.9; O2SAT 98
[2024-09-14] MEDS: SIMETHICONE 80 MG TAB.CHEW PO (07:49)
[2024-09-14] MEDS: DOCUSATE SODIUM 100 MG CAPSULE PO (07:50)
[2024-09-14] MEDS: FAMOTIDINE 20 MG TABLET PO (07:50)
[2024-09-14 07:51] VITALS: PULSE 80
[2024-09-14] MEDS: LABETALOL HCL 100 MG TABLET BY MOUTH (07:51)
[2024-09-14] MEDS: MULTIVIT/MIN/PREN/FOL AC/IRON TABLET 1 TAB PO (07:51)
--- NOTE | 2024-09-14 09:47 | PC.NURSE ---
Patient viewed the discharge video Mother & Baby Care, The First Two Weeks. Patient was given the opportunity and encouraged to ask questions. Patient verbalized understanding of information shared and has been given the mother/baby guide for home reference.
== END 2024-09-14 10:33 | disposition home or self-care (01) | DRG 788 ==
LOC: ANHLDR 06:35 → ANHOB2 11:09
PROVIDERS: Admitting Provider Obstetrics & Gynecology; PCP Family Medicine; Visit Provider Obstetrics & Gynecology
PROC: 10D00Z1 Extraction of Products of Conception, Low, Open Approach (ICD-10-PCS; CPT 59514; principal; 2024-09-12 07:30)
DX: O34.211 Maternal care for low transverse scar from previous cesarean delivery (principal); Z37.0 Single live birth; Z3A.39 39 weeks gestation of pregnancy; O32.1XX0 Maternal care for breech presentation, not applicable or unspecified
CPT/HCPCS: 36415; 85025; J0690; A9270; J1885; J2270; J2274; J2405; J2590; J7120